=== PATIENT | female | born 1990 | race Caucasian/White ===

== ENCOUNTER → 2017-09-17 | Outpatient (CLI) | payer OTHER ==
--- NOTE | 2017-09-18 01:51 | MR ---
EXAMINATION TYPE: MR cspine/lspine wo con DATE OF EXAM: 09/17/2017 COMPARISON: HISTORY: Headaches, dizziness, neck pain, rt arm weakness, LBP, radiates into lt buttock TECHNIQUE: Multiplanar, multisequence imaging of the lumbar spine and cervical spine is performed wit hout IV contrast. FINDINGS: The cervical vertebra have fairly normal spacing and alignment. Cervical spinal cord has normal signa l pattern. There is no edema. Brainstem appears normal. There are small posterior disc bulges at C3-4 C4-5 C5-6. There is no spinal stenosis. There is developmentally adequate cervical spinal canal. The re is no cervical paraspinal mass. I see no bony destructive process. There is no compression fractur e. The lumbar vertebra have normal spacing and alignment. Posterior elements are intact. Neural foramina are widely patent. There is no spinal stenosis. Lumbar disks appear intact. There is no compression fracture in the lumbar spine. There is no lumbar paraspinal mass. Lumbar nerve roots appear normal. IMPRESSION: Minimal disc bulging in the cervical spine. Otherwise negative exam. Normal MR scan of the lumbar spine..
== END ==
LOC: RADMRIMAIN 18:20
PROVIDERS: ATTEND Psychiatry & Neurology Neurology
DX: M54.5 Low back pain (principal)
CPT/HCPCS: 72141; 72148

== ENCOUNTER → 2017-09-21 | Outpatient (CLI) | payer OTHER ==
--- NOTE | 2017-09-21 08:12 | MR ---
EXAMINATION TYPE: MR brain wo/w con DATE OF EXAM: 09/21/2017 COMPARISON: CT brain July 01, 2013 HISTORY: Headache per order. Additional symptoms of dizziness and left-sided hearing loss per patient . TECHNIQUE: Multiplanar, multisequence imaging of the brain and brainstem is performed without IV cont rast. FINDINGS: Diffusion weighted images demonstrate no evidence of a recent infarct or other diffusion abnormality. There is no extraaxial fluid collection or significant white matter signal abnormality. The ventricu lar system and cisternal spaces are normal in size and appearance. The brain volume is age appropria te. Midline structures demonstrate normal morphology. The craniocervical junction appears within normal limits. Normal vascular flow voids are present. The visualized sinuses are clear and the globes are i ntact. No suspicious fluid signal mastoid air cells is present bilaterally. IMPRESSION: No suspicious finding identified to account for patient's symptoms.
== END | disposition home or self-care (01) ==
LOC: RADMRIMAIN 07:12
PROVIDERS: ATTEND Psychiatry & Neurology Pain Medicine
DX: R51 Headache (principal)
CPT/HCPCS: 70553; A9581

== ENCOUNTER 2017-11-11 09:34 | Emergency (ER) | payer OTHER ==
[2017-11-11 09:38] VITALS: TEMP 98
[2017-11-11] MEDS ORDERED: diphenhydrAMINE 50 MG/ML 1 ML VIAL IVP STA (09:47)
[2017-11-11] MEDS ORDERED: methylPREDNISolone SOD SUCCI 125 MG/2 ML VIAL IV STA (09:47)
[2017-11-11] MEDS ORDERED: FAMOTIDINE 20 MG/2 ML VIAL IV STA (09:47)
--- NOTE | 2017-11-11 10:21 | ED ---
General Adult HPI - General Chief complaint: Allergic Reaction Stated complaint: insect sting, epi pen administered Time Seen by Provider: 11/11/17 09:42 Source: patient, RN notes reviewed Mode of arrival: ambulatory Limitations: no limitations - History of Present Illness Initial comments: Patient 27-year-old female who presents emergency room today with chief complaint of bee sting to the left jaw 20 minutes. Patient does admit that she did give herself an EpiPen injection. Patient states this feel little "jittery" at this time. Patient denies any difficulty breathing or swallowing. Denies any tongue or lip swelling. Patient denies any other complaints. Patient denies any recent fever, chills, shortness of breath, chest pain, back pain, abdominal pain, nausea or vomiting, numbness or tingling, or any other complaints. - Related Data Home Medications Medication Instructions Recorded Confirmed EPINEPHrine (Auto Inject) [Epipen] 0.3 mg IM ONCE PRN 08/13/15 08/13/15 Previous Rx's Medication Instructions Recorded EPINEPHrine [Epipen 2-Foster] 0.3 mg IM ONCE PRN #2 ml 08/13/15 Famotidine [Pepcid] 20 mg PO BID #10 tablet 08/13/15 diphenhydrAMINE [Benadryl] 1 - 2 tab PO Q6HR PRN #30 capsule 08/13/15 predniSONE 60 mg PO DAILY 5 Days tab 08/13/15 EPINEPHrine [Epipen 2-Foster] 0.3 mg IM ONCE PRN #1 ml 11/11/17 Famotidine [Pepcid] 20 mg PO BID #20 tablet 11/11/17 diphenhydrAMINE [Benadryl] 1 - 2 tab PO Q6HR PRN #30 capsule 11/11/17 predniSONE 50 mg PO DAILY #5 tab 11/11/17 Allergies Allergy/AdvReac Type Severity Reaction Status Date / Time spider venom Allergy Swelling Verified 11/11/17 09:38 venom-honey bee Allergy Swelling Verified 11/11/17 09:38 [bee venom (honey bee)] Review of Systems ROS Statement: Those systems with pertinent positive or pertinent negative responses have been documented in the HPI. ROS Other: All systems not noted in ROS Statement are negative. Past Medical History Past Medical History: No Reported History History of Any Multi-Drug Resistant Organisms: None Reported Past Surgical History: Tonsillectomy Past Psychological History: No Psychological Hx Reported Smoking Status: Never smoker Past Alcohol Use History: Occasional Past Drug Use History: None Reported General Exam - General Exam Comments Initial Comments: General: The patient is awake and alert, in no distress, and does not appear acutely ill. Eye: Pupils are equal, round and reactive to light, extra-ocular movements are intact. No nystagmus. There is normal conjunctiva bilaterally. No signs of icterus. Ears, nose, mouth and throat: There are moist mucous membranes and no oral lesions. No angioedema or tongue swelling. Neck: The neck is supple, there is no tenderness or JVD. Cardiovascular: There is a regular rate and rhythm. No murmur, rub or gallop is appreciated. Respiratory: Lungs are clear to auscultation, respirations are non-labored, breath sounds are equal. No wheezes, stridor, rales, or rhonchi. Musculoskeletal: Normal ROM, no tenderness. Sensation intact. Neurological: A&O x 3. CN II-XII intact, There are no obvious motor or sensory deficits. Coordination appears grossly intact. Speech is normal. Skin: Skin is warm and dry and no rashes or lesions are noted. Psychiatric: Cooperative, appropriate mood & affect, normal judgment. Limitations: no limitations Course Vital Signs 11/11/17 11/11/17 09:35 10:20 Temperature 98.0 F Pulse Rate 111 H Respiratory 18 16 Rate Blood Pressure 135/73 O2 Sat by Pulse 98 Oximetry Medical Decision Making - Medical Decision Making Patient reexamined at this time shows no signs of distress. Patient has been observed here in the emergency room for her ALLERGIC reaction. There is no increase of symptoms. She is feeling fine at this time. Vitals are stable. There is no difficulty breathing, swallowing. Patient was never need be intubated in the past. She did have EpiPen that she gave herself earlier today. Patient will be discharged home to continue Benadryl, Pepcid, steroids. She be given a new prescription for her EpiPen. Advised follow-up the family doctor return if any symptoms increase or worsen. Disposition Clinical Impression: Allergic reaction Disposition: HOME SELF-CARE Condition: Good Instructions: Anaphylaxis (ED) Additional Instructions: Please use medication as discussed. Please follow-up with family doctor in the next 2 days of symptoms have not improved. Please return to emergency room if the symptoms increase or worsen or for any other concerns. Prescriptions: diphenhydrAMINE [Benadryl] 1 - 2 tab PO Q6HR PRN #30 capsule PRN Reason: Allergic Reaction EPINEPHrine [Epipen 2-Foster] 0.3 mg IM ONCE PRN #1 ml PRN Reason: Allergic Reaction Famotidine [Pepcid] 20 mg PO BID #20 tablet predniSONE 50 mg PO DAILY #5 tab Is patient prescribed a controlled substance at d/c from ED?: No Referrals: Nilson James DO [Primary Care Provider] - 1-2 days Time of Disposition: 11:17
[2017-11-11 11:43] VITALS: BP 116/55; PULSE 92; RESP 18
== END 2017-11-11 11:40 | disposition home or self-care (01) ==
LOC: EC 09:34
DX: T78.40XA Allergy, unspecified, initial encounter (principal); Z91.030 Bee allergy status; Z91.038 Other insect allergy status
CPT/HCPCS: 99283; 96374; 96375 ×2; J1200; J2930

== ENCOUNTER → 2019-01-04 | Outpatient (CLI) | payer OTHER ==
--- NOTE | 2019-01-04 21:29 | XR ---
EXAMINATION TYPE: XR ankle complete LT DATE OF EXAM: 01/04/2019 CLINICAL HISTORY: Infection in September with recurrence currently with swelling. TECHNIQUE: Frontal, lateral and oblique images of the left ankle are obtained. COMPARISON: None. FINDINGS: There is no acute fracture/dislocation evident in the left ankle. The ankle mortise appea rs within normal limits. The overlying soft tissue appears unremarkable. IMPRESSION: Unremarkable study.
== END | disposition home or self-care (01) ==
LOC: RADXRMAIN 16:35
PROVIDERS: ATTEND Family Medicine
DX: M25.572 Pain in left ankle and joints of left foot (principal)

== ENCOUNTER 2019-04-21 08:29 | Emergency (ER) | payer OTHER, BC ==
[2019-04-21 08:41] VITALS: BP 131/75; PULSE 82; RESP 18; TEMP 97.4
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
[2019-04-21] MEDS ORDERED: ACET/COD 300 MG/30 MG STARTER PACK 6 TAB BTL PO STA (09:39)
[2019-04-21] MEDS ORDERED: MORPHINE SULFATE 4 MG/ML SYRINGE IM STA (09:56)
== END 2019-04-21 10:26 | disposition home or self-care (01) ==
LOC: EC 08:29
DX: S20.212A Contusion of left front wall of thorax, initial encounter (principal); S40.022A Contusion of left upper arm, initial encounter; Z91.038 Other insect allergy status; Z91.030 Bee allergy status; V49.9XXA Car occupant (driver) (passenger) injured in unspecified traffic accident, initial encounter; Y92.410 Unspecified street and highway as the place of occurrence of the external cause; Y93.89 Activity, other specified
CPT/HCPCS: 73060; 73090; 71046; 96372; 99284; J2270

== ENCOUNTER → 2019-04-27 | Outpatient (CLI) | payer OTHER, BC ==
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
== END | disposition home or self-care (01) ==
LOC: RADXRMAIN 10:33
PROVIDERS: ATTEND Family Medicine
DX: M50.30 Other cervical disc degeneration, unspecified cervical region (principal); M47.812 Spondylosis without myelopathy or radiculopathy, cervical region; M40.40 Postural lordosis, site unspecified; M25.512 Pain in left shoulder
CPT/HCPCS: 72050

== ENCOUNTER → 2019-07-28 | Outpatient (CLI) | payer BC ==
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
== END | disposition home or self-care (01) ==
LOC: RADCTMAIN 14:31
PROVIDERS: ATTEND Family Medicine
DX: M25.512 Pain in left shoulder (principal)
CPT/HCPCS: 73201; Q9967

== ENCOUNTER → 2019-09-12 | Outpatient (CLI) | payer OTHER, BC ==
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
== END | disposition home or self-care (01) ==
LOC: RADMRIMAIN 18:05
PROVIDERS: ATTEND Family Medicine
DX: S46.812A Strain of other muscles, fascia and tendons at shoulder and upper arm level, left arm, initial encounter (principal)

== ENCOUNTER → 2021-08-26 | Outpatient (CLI) | payer BC, OTHER ==
--- NOTE | 2021-08-26 10:14 | US ---
EXAMINATION TYPE: US gallbladder DATE OF EXAM: 08/26/2021 COMPARISON: NONE CLINICAL HISTORY: R10.11 RIGHT UPPER QUADRANT PAIN. EXAM MEASUREMENTS: Liver Length: 11.8 cm Gallbladder Wall: 0.2 cm CBD: 0.5 cm Right Kidney: 10.4 x 3.6 x 4.4 cm Pancreas: partially obscured by bowel gas. Liver: wnl Gallbladder: No stones seen Evidence for sonographic Salmeron's sign: No CBD: wnl Right Kidney: No hydronephrosis or masses seen IMPRESSION: No discrete abnormality seen.
== END | disposition home or self-care (01) ==
LOC: RADUSWWP 07:56
PROVIDERS: ATTEND Family Medicine
DX: K21.9 Gastro-esophageal reflux disease without esophagitis (principal); E66.9 Obesity, unspecified
CPT/HCPCS: 76705

== ENCOUNTER → 2021-09-11 | Outpatient (CLI) | payer BC, OTHER ==
--- NOTE | 2021-09-11 10:48 | NM ---
Nuclear medicine hepatobiliary scan. HISTORY: Pain. DOSAGE: The patient received 8 ounces of Ensure Plus and 4.7 mCi of Technetium 99m Choletec. FINDINGS: There is normal hepatic extraction. The gallbladder is seen by 20 minutes. There is bilia ry to bowel clearance by 20 minutes. Ejection fraction is 91%. IMPRESSION: 1. No evidence of cholecystitis. 2. Ejection fraction of 91% can occasionally be associated with hyperdynamic gallbladder.
== END | disposition home or self-care (01) ==
LOC: RADNMMAIN 07:02
PROVIDERS: ATTEND Family Medicine
DX: R10.11 Right upper quadrant pain (principal)
CPT/HCPCS: 78226; A9537

== ENCOUNTER → 2022-11-04 | Outpatient (CLI) | payer OTHER ==
--- NOTE | 2022-11-04 16:25 | XR ---
EXAMINATION TYPE: XR Hip Complete LT DATE OF EXAM: 11/04/2022 4:21 PM INDICATION: Patient age:Female; 32 years old; Reason for study: S13.4XXA,S23.3XXA,S39.012A,S73.102A; [facility]. COMPARISON: None. TECHNIQUE: The left hip was examined in the frontal and lateral projections FINDINGS: No evidence of any acute osseous pathology, joint dislocation, or soft tissue swelling. Pel kenyetta phleboliths. IMPRESSION: No acute osseous pathology.
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
--- NOTE | 2022-11-04 16:29 | XR ---
EXAMINATION TYPE: XR lumbar spine 2 or 3V DATE OF EXAM: 11/04/2022 CLINICAL HISTORY: S13.4XXA,S23.3XXA,S39.012A,S73.102A TECHNIQUE: Three views of the lumbar spine are submitted. COMPARISON: MR L-spine 09/17/2018, scoliosis radiograph 09/12/2011 FINDINGS: There are 5 lumbar type vertebral bodies identified. No acute fracture or dislocation. Minimal dextro curvature of the lumbar spine. Vertebral body heights are within normal limits. Disc spaces are wit hin normal limits. The overlying soft tissue appears unremarkable. IMPRESSION: 1. No acute fracture or dislocation is seen in the lumbar spine. 2. Minimal dextrocurvature of the lumbar spine.
== END | disposition home or self-care (01) ==
LOC: RADXRMAIN 15:42
PROVIDERS: ATTEND Emergency Medicine
DX: S13.4XXA Sprain of ligaments of cervical spine, initial encounter (principal); S23.3XXA Sprain of ligaments of thoracic spine, initial encounter; S39.012A Strain of muscle, fascia and tendon of lower back, initial encounter; S73.102A Unspecified sprain of left hip, initial encounter; M41.86 Other forms of scoliosis, lumbar region; M50.322 Other cervical disc degeneration at C5-C6 level; X58.XXXA Exposure to other specified factors, initial encounter
CPT/HCPCS: 72050; 72072; 72100; 73502

== ENCOUNTER → 2023-02-06 | Outpatient (CLI) | payer OTHER ==
--- NOTE | 2023-02-07 17:25 | MR ---
MRI left hip. HISTORY: Left hip pain COMPARISON: None TECHNIQUE: Multiecho multiplanar images left hip were obtained. FINDINGS: The osseous structures are intact and there is no bone contusion or fracture. There is physiologic fluid but no joint effusion. There is no soft tissue abnormality or bursitis. Tiny labral tear in the superior labrum cannot be entirely excluded. If there is a clinical suspicion for labral tear then left hip MRI arthrogram is recommended for further evaluation. There is a 3.9 cm cyst of the left adnexa and pelvic ultrasound is recommended in 1-2 menstrual cycle s to confirm resolution of a simple ovarian cyst. IMPRESSION: 1. Cannot exclude tiny superior labral tear of the left hip. If there is a clinical suspicion for lab ral injury then MRI arthrogram left hip is recommended. 2. 3.9 cm cyst of the left adnexa. Follow-up pelvic ultrasound in 1-2 menstrual cycles is recommended to confirm simple cyst. 3. No left hip fracture or focal intraosseous abnormality.. No evidence of bursitis or other periarti cular soft tissue abnormality.
== END | disposition home or self-care (01) ==
LOC: RADMRIMAIN 21:30
PROVIDERS: ATTEND Orthopaedic Surgery
DX: N83.202 Unspecified ovarian cyst, left side (principal)

== ENCOUNTER → 2024-04-05 | Outpatient (CLI) | payer BC ==
[2024-04-05 10:50] LABS: Basophils % (A) 1.6 %; Eosinophils # (A) 0.46 X 10*3/uL (0.04-0.35); Eosinophils % (A) 7.3 %; HCT 42.8 % (37.2-46.3); HGB 13.9 g/dL (12.0-15.0); Lymphocytes # (A) 2.02 X 10*3/uL (0.90-5.00); Lymphocytes % (A) 32.2 %; MCH 29.2 pg (27.0-32.0); MCHC 32.5 g/dL (32.0-37.0); MCV 89.9 FL (80.0-97.0); Mean Platelet Volume 10.3 FL (9.5-12.2); Monocytes # (A) 0.62 X 10*3/uL (0.20-1.00); Monocytes % (A) 9.9 %; NRBC Per 100 WBC 0 X 10*3/uL (0.00-0.01); Neutrophils # (A) 3.06 X 10*3/uL (1.80-7.70); Neutrophils % (A) 48.8 %; Platelet Count 301 X 10*3/uL (140-440); RBC 4.76 X 10*6/uL (4.10-5.20); RDW 12.1 % (11.5-14.5); WBC 6.27 X 10*3/uL (4.50-10.00)
[2024-04-05 11:04] LABS: ALT 21 U/L (8-44); AST 20 U/L (13-35); Albumin 4.2 g/dL (3.8-4.9); Albumin/Globulin Ratio 1.91 Ratio (1.60-3.17); Alkaline Phosphatase 73 U/L (41-126); BUN/Creat Ratio 16.56 Ratio (12.00-20.00); Blood Urea Nitrogen 14.9 mg/dL (9.0-27.0); Calcium 9.3 mg/dL (8.7-10.3); Chloride 106 mmol/L (96-109); Globulin 2.2 g/dL (1.6-3.3); Glucose 93 mg/dL (70-110); LDL Cholesterol,Calculated 102.5 mg/dL (0.0-131.0); Potassium 4.6 mmol/L (3.5-5.5); Sodium 142 mmol/L (135-145); T4, Free (Free Thyroxine) 1.01 ng/dL (0.80-1.80); Total Bilirubin 0.4 mg/dL (0.3-1.2); Total Protein 6.4 g/dL (6.2-8.2)
== END | disposition home or self-care (01) ==
LOC: LABWHC1 07:40
PROVIDERS: ATTEND Family Medicine
DX: Z00.00 Encounter for general adult medical examination without abnormal findings (principal); Z13.29 Encounter for screening for other suspected endocrine disorder; Z13.0 Encounter for screening for diseases of the blood and blood-forming organs and certain disorders involving the immune mechanism; Z13.9 Encounter for screening, unspecified
CPT/HCPCS: 36415; 80053; 80061; 84439; 84443; 84481; 85025